=== PATIENT | female | born 1975 | race Asian ===

== ENCOUNTER 2021-04-09 15:48 | Emergency (ER) | payer OTHER ==
[~2021-04-09] VITALS: Ht 165.1 cm; Wt 66.7 kg
== END 2021-04-09 16:41 | disposition home or self-care (01) ==
LOC: ER 15:48 → EDBD 15:48 → ER 16:41
DX: S61.211A Laceration without foreign body of left index finger without damage to nail, initial encounter (principal); Z23 Encounter for immunization; W45.8XXA Other foreign body or object entering through skin, initial encounter
CPT/HCPCS: 12001; 90471; 90714; 99282-25